=== PATIENT | female | born 1990 | race Caucasian/White ===

== ENCOUNTER 2017-05-01 16:43 | Emergency (ER) | payer BC ==
[2017-05-01 16:53] VITALS: BP 116/58
--- NOTE | 2017-05-01 16:55 | ED ---
Headache - HPI Summary HPI Summary: 26 yr old female with frontal headache for two weeks and feeling now like her equilibrium is off for about three days with dizziness. She denies change in vision speech, hearing, swallowing. Denies focal weakness, numbness, scotomata. Denies fever, chills, sinus drainage. She denies falls or trauma. She is 20 weeks and is receiving her OB care through [facility]. - History Of Current Complaint Chief Complaint: UCDizziness Stated Complaint: DIZZINESS X 2 WKS () Time Seen by Provider: 05/01/17 16:46 Hx Last Menstrual Period: 05/22/15 - Allergies/Home Medications Allergies/Adverse Reactions: Allergies Allergy/AdvReac Type Severity Reaction Status Date / Time Penicillins Allergy Hives Verified 05/01/17 16:48 Home Medications: Home Medications [id number]/Iron Fum/Folic/Docusate [ 19] 1 tab PO DAILY 05/01/17 [History Confirmed 05/01/17] PMH/Surg Hx/FS Hx/Imm Hx Infectious Disease History: No Infectious Disease History: Denies: Traveled Outside the [place] in Last 30 Days - Family History Known Family History: Positive: None - Social History Lives: With Family Alcohol Use: None Substance Use Type: Reports: None Smoking Status (MU): Never Smoked Tobacco Review of Systems Constitutional: Negative Negative: Ear Ache, Nasal Discharge Positive: Headache All Other Systems Reviewed And Are Negative: Yes - Comments Additional Review of Systems Comments: feels like equilibrium off and off balance a little past three days. Physical Exam Triage Information Reviewed: Yes Vital Signs On Initial Exam: Initial Vitals Temp Pulse Resp BP Pulse Ox 98.4 F 76 16 116/58 100 05/01/17 16:49 05/01/17 16:49 05/01/17 16:49 05/01/17 16:49 05/01/17 16:49 Vital Signs Reviewed: Yes Appearance: Positive: Well-Appearing, No Pain Distress Skin: Positive: Warm Eyes: Positive: EOMI ENT: Positive: Pharynx normal, TMs normal Neck: Positive: Nontender. Negative: Nuchal Rigidity Respiratory/Lung Sounds: Positive: Clear to Auscultation, Breath Sounds Present Cardiovascular: Positive: RRR Abdomen Description: Positive: Other: - gravid Musculoskeletal: Positive: Strength/ROM Intact Neurological: Positive: Sensory/Motor Intact, Alert, Oriented to Person Place, Time, CN Intact II-III, Normal Gait, Finger to Nose - smooth, Speech Normal - [place] Coma Scale Best Eye Response: 4 - Spontaneous Best Motor Response: 6 - Obeys Commands Best Verbal Response: 5 - Oriented Coma Scale Total: 15 Diagnostics - Vital Signs Vital Signs Temp Pulse Resp BP Pulse Ox 05/01/17 16:49 98.4 F 76 16 116/58 100 - Laboratory Lab Statement: Any lab studies that have been ordered have been reviewed, and results considered in the medical decision making process. Headache Course/Dx - Course Course Of Treatment: 26 yr old who is 20 week with headache and vertigo symptoms. She needs to go to the ER for furthe rwork up. She feels safe and has not had any falls. her is here and wants tot drive her to the ER at [place] from here now. - Diagnoses Provider Diagnoses: Headache, Vertigo Discharge - Discharge Plan Condition: Good Disposition: HOME Patient Education Materials: Vertigo (ED), Acute Headache (ED) Referrals: Ambika Mendieta CNM [Primary Care Provider] - Additional Instructions: YOU NEED TO GO TO THE ER IMMEDIATELY UPON LEAVING THIS URGENT CARE FOR FURTHER WORK UP FOR YOUR HEADACHE AND DIZZINESS>
== END 2017-05-01 17:03 | disposition home or self-care (01) ==
LOC: UCCORT 16:43
DX: O26.892 Other specified pregnancy related conditions, second trimester (principal); Z3A.20 20 weeks gestation of pregnancy; R51 Headache; R42 Dizziness and giddiness; Z88.0 Allergy status to penicillin
CPT/HCPCS: 99212; G0463

== ENCOUNTER 2019-03-03 09:06 | Emergency (ER) | payer BC ==
[2019-03-03 09:19] VITALS: BP 111/55
--- NOTE | 2019-03-03 09:23 | UC ---
Ear Complaint HPI - HPI Summary HPI Summary: 28-year-old female who is 5 months who started complaining of bilateral earache since yesterday. She denies any cold symptoms. - History of Current Complaint Chief Complaint: UCEar Stated Complaint: B/L EAR COMPLAINT Time Seen by Provider: 03/03/19 09:10 Hx Obtained From: Patient Hx Last Menstrual Period: 05/22/15 ?: Yes - 5 months gestation Onset/Duration: Gradual Onset Severity Initially: Mild Severity Currently: Mild Pain Intensity: 7 Aggravating Factors: Nothing Alleviating Factors: Nothing Associated Signs/Symptoms: Negative: URI Symptoms - Allergies/Home Medications Allergies/Adverse Reactions: Allergies Allergy/AdvReac Type Severity Reaction Status Date / Time Penicillins Allergy Hives Verified 03/03/19 09:18 Home Medications: Home Medications Aspirin EC TAB* [Ecotrin EC Low Dose 81 MG*] 81 mg PO DAILY 03/03/19 [History Confirmed 03/03/19] PMH/Surg Hx/FS Hx/Imm Hx Previously Healthy: Yes - Surgical History Surgical History: Yes Surgery Procedure, Year, and Place: - Family History Known Family History: Positive: None - Social History Alcohol Use: None Substance Use Type: None Smoking Status (MU): Never Smoked Tobacco Review of Systems All Other Systems Reviewed And Are Negative: Yes ENT: Positive: Ear Ache - Bilateral earache, the right is worse than the left. Is Patient Immunocompromised?: No Physical Exam Triage Information Reviewed: Yes Appearance: Well-Appearing, No Pain Distress, Well-Nourished Vital Signs: Initial Vital Signs Temp 98.1 F 03/03/19 09:18 Pulse 73 03/03/19 09:18 Resp 15 03/03/19 09:18 BP 111/55 03/03/19 09:18 Pulse Ox 100 03/03/19 09:18 Vital Signs Reviewed: Yes Eyes: Positive: Conjunctiva Clear ENT: Positive: Hearing grossly normal, Pharynx normal, TMs normal, Uvula midline Neck: Positive: Supple, Nontender, No Lymphadenopathy Respiratory: Positive: Lungs clear, Normal breath sounds, No respiratory distress, No accessory muscle use Cardiovascular: Positive: RRR, No Murmur, Pulses Normal, Brisk Capillary Refill Musculoskeletal Exam: Normal Neurological Exam: Normal Psychological Exam: Normal Skin Exam: Normal Ear Complaint Course/Dx - Course Course Of Treatment: Patient is comfortable here. She is to follow-up with her primary care provider as needed. - Differential Dx/Diagnosis Provider Diagnosis: Otalgia, bilateral Discharge ED - Sign-Out/Discharge Documenting (check all that apply): Patient Departure All imaging exams completed and their final reports reviewed: No Studies - Discharge Plan Condition: Good Disposition: HOME Patient Education Materials: Earache (ED) Referrals: Amber Lewis MD [Primary Care Provider] - Additional Instructions: May take Tylenol every 4 hours as needed for pain. Follow-up with your primary care provider or return here for recheck if worsening symptoms. - Billing Disposition and Condition Condition: GOOD Disposition: Home
== END 2019-03-03 09:35 | disposition home or self-care (01) ==
LOC: UCCORT 09:06
DX: H92.03 Otalgia, bilateral (principal); Z88.0 Allergy status to penicillin; Z79.82 Long term (current) use of aspirin
CPT/HCPCS: 99211; G0463